=== PATIENT | female | born 1950 | race Caucasian/White ===

== ENCOUNTER 2017-03-14 16:44 | Emergency (ER) | payer MEDICARE, OTHER ==
[2017-03-14] MEDS ORDERED: MORPHINE 2 MG/ML SYRINGE IVP STA (17:24)
[2017-03-14] MEDS ORDERED: KETOROLAC 60 MG/2 ML VIAL IVP STA (17:24)
[2017-03-14] MEDS ORDERED: ONDANSETRON 4 MG/2 ML VIAL IVP STA ×2 (17:24→18:52)
[2017-03-14] MEDS ORDERED: MORPHINE 2 MG/ML SYRINGE ONE (17:46)
[2017-03-14] MEDS ORDERED: ONDANSETRON 4 MG/2 ML VIAL ONE ×2 (17:46→18:53)
[2017-03-14] MEDS ORDERED: KETOROLAC 30 MG/ML VIAL ONE (17:46)
[2017-03-14] MEDS ORDERED: HYDROmorphone 1 MG/ML SYRINGE IVP STA (18:24)
[2017-03-14] MEDS ORDERED: TAMSULOSIN 0.4 MG CAPSULE PO STA (18:52)
[2017-03-14] MEDS ORDERED: HYDROmorphone 1 MG/ML SYRINGE ONE (18:53)
[2017-03-14] MEDS ORDERED: TAMSULOSIN 0.4 MG CAPSULE ONE (18:54)
== END 2017-03-14 19:44 | disposition home or self-care (01) ==
DX: N13.2 Hydronephrosis with renal and ureteral calculous obstruction (principal); Z87.891 Personal history of nicotine dependence
CPT/HCPCS: 74176; 80053; 81001; 83690; 85025; 96374; 96375; 96376; 99283; 99284; A9270; J1170

== ENCOUNTER 2017-06-19 08:39 | Outpatient (CLI) | payer MEDICARE, OTHER ==
--- NOTE | 2017-06-20 17:21 | Mammography Report ---
DIGITAL SCREENING MAMMOGRAM: 06/19/2017 CLINICAL INDICATION: A 66-year-old for screening. COMPARISON: Films from [place], [place] dated 07/07/2014, 03/22/2013. TECHNIQUE: Routine CC and MLO projections were obtained of the breasts as well as bilateral laterall y exaggerated craniocaudal views. FINDINGS: The breasts again demonstrate heterogeneously dense fibroglandular parenchyma bilaterally. Punctate, typically benign calcifications are present. No suspicious masses, clustered microcalcif ications, or regions of architectural distortion are identified. IMPRESSION: BENIGN FINDINGS. RECOMMENDATION: Routine annual screening unless otherwise clinically indicated. BIRADS CATEGORY 2 - BENIGN FINDINGS. STANDARD QUALIFYING STATEMENTS 1. This examination was reviewed with the aid of Computer-Aided Detection (CAD). 2. A negative or benign imaging report should not delay biopsy if clinically suspicious findings are present. Consider surgical consultation if warranted. More than 5% of cancers are not identified by i maging. 3. Dense breasts may obscure an underlying neoplasm. JOB #: [id number] EXT JOB #:[id number]
== END 2017-06-19 08:40 | disposition home or self-care (01) ==
LOC: DI 08:39
PROVIDERS: ATTEND Family Medicine
DX: Z12.31 Encounter for screening mammogram for malignant neoplasm of breast (principal)
CPT/HCPCS: 77067

== ENCOUNTER 2017-07-11 08:20 | Outpatient (CLI) | payer MEDICARE, OTHER ==
--- NOTE | 2017-07-11 10:12 | XRAY Report ---
TWO-VIEW CHEST: 07/11/2017 CLINICAL INDICATION: Cough, wheezing. FINDINGS: Frontal and lateral views of the chest demonstrate a normal cardiac silhouette. The lungs are clear. No effusion or pneumothorax is present. IMPRESSION: NORMAL CHEST. JOB #: [id number] EXT JOB #:[id number]
== END 2017-07-11 08:21 | disposition home or self-care (01) ==
LOC: DI 08:20
PROVIDERS: ATTEND Nurse Practitioner Family
DX: R05 Cough (principal); R06.2 Wheezing
CPT/HCPCS: 71020

== ENCOUNTER 2018-10-10 09:23 | Outpatient (CLI) | payer MEDICARE, OTHER ==
--- NOTE | 2018-10-11 08:58 | Mammography Report ---
Reason: SCREENING MAMMO Procedure Date: 10/10/2018 Accession Number: [id number] / [id number] Procedure: JEREMIAH - Screening Mammo w/Dwayne CPT Code: FULL RESULT: EXAM: Screening Mammo w/Dwayne DATE: 10/10/2018 10:12 AM CLINICAL HISTORY: Screening encounter. History of left breast cyst removal in the 1970s. TECHNIQUE: Bilateral CC, laterally exaggerated CC, MLO views were obtained. COMPARISON: 06/19/2017 through 03/22/2013. FINDINGS: The breasts demonstrate heterogeneously dense fibroglandular parenchyma bilaterally. There are coarse typically benign calcifications bilaterally. No suspicious masses, clustered microcalcifications, or regions of architectural distortion are identified. IMPRESSION: Benign findings RECOMMENDATION: Routine annual screening unless otherwise clinically indicated. BIRADS CATEGORY 2: Benign findings STANDARD QUALIFYING STATEMENTS: 1. This examination was not reviewed with the aid of Computer-Aided Detection (CAD). 2. A negative or benign imaging report should not preclude biopsy if clinically suspicious findings are present. 3. Dense breasts may obscure an underlying neoplasm. 4. This examination was reviewed without the aid of 3D breast imaging (tomosynthesis).
== END 2018-10-10 09:24 | disposition home or self-care (01) ==
LOC: DI 09:23
DX: Z12.31 Encounter for screening mammogram for malignant neoplasm of breast (principal)
CPT/HCPCS: 77063; 77067

== ENCOUNTER 2019-10-01 11:03 | Outpatient (CLI) | payer MEDICARE, OTHER ==
--- NOTE | 2019-10-02 09:22 | Mammography Report ---
Reason: SCREENING MAMMO Procedure Date: 10/01/2019 Accession Number: [id number] / [id number] Procedure: JEREMIAH - Screening Mammo w/Dwayne CPT Code: Final Report FULL RESULT: EXAM: Screening Mammo w/Dwayne DATE: 10/01/2019 11:39 AM CLINICAL HISTORY: Screening encounter. History of benign left biopsy excisional type. TECHNIQUE: (B) - Bilateral CC, laterally exaggerated CC, MLO views were obtained. COMPARISON: 10/10/2018 through 03/22/2013. PARENCHYMAL PATTERN: (D) - The breast(s) demonstrate(s) heterogeneously dense fibroglandular parenchyma. FINDINGS: There are coarse typically benign calcifications. There are no suspicious masses, calcifications, or areas of distortion. IMPRESSION: Benign findings. BI-RADS category 2. RECOMMENDATION: (ANNUAL) - Recommend routine annual screening mammography. BI-RADS CATEGORY: (2) - Benign Findings. STANDARD QUALIFYING STATEMENTS: 1. This examination was not reviewed with the aid of Computer-Aided Detection (CAD). 2. A negative or benign imaging report should not preclude biopsy if clinically suspicious findings are present. 3. Dense breasts may obscure an underlying neoplasm. 4. This examination was reviewed with the aid of 3D breast imaging (tomosynthesis).
== END 2019-10-01 11:04 | disposition home or self-care (01) ==
LOC: DI 11:03
PROVIDERS: ATTEND Nurse Practitioner Family
DX: Z12.31 Encounter for screening mammogram for malignant neoplasm of breast (principal)
CPT/HCPCS: 77063; 77067

== ENCOUNTER 2023-10-27 10:10 | Emergency (ER) | payer MEDICARE, OTHER ==
--- NOTE | 2023-10-27 10:23 | ED Physician Documentation ---
PD HPI ABD PAIN - Stated complaint Stated Complaint: ABD CRAMPING/NAUSEA/VOMITING - History obtained from History obtained from: Patient - History of Present Illness Timing - onset: How many days ago (3-4) Timing - duration: Days (3-4) Timing - details: Abrupt onset, Still present Pain level max: 10 Pain level now: 7 Quality: Cramping, Aching, Pain Location: LLQ Radiation: Lower back. No: Chest, Left flank Improved by: No: Laying still Worsened by: Moving, Palpation Associated symptoms: Nausea, Diarrhea (severe frequent watery yellow foul- smelling diarrhea without blood.). No: Fever, Vomiting, Constipation Similar symptoms before: Has not had sx before Recently seen: Not recently seen, Other (no recent suspicious food nor antibioti cs. no travel.) Review of Systems Constitutional: denies: Fever, Chills Nose: denies: Rhinorrhea / runny nose, Congestion Throat: denies: Sore throat Respiratory: denies: Cough PD PAST MEDICAL HISTORY - Past Medical History Cardiovascular: None Respiratory: None Neuro: None Endocrine/Autoimmune: None GI: None TRAINING CONSULTANT: None : None HEENT: None Psych: None Musculoskeletal: None Derm: None - Past Surgical History Past Surgical History: Yes General: Cholecystectomy Ortho: Carpal Tunnel surgery /TRAINING CONSULTANT: Hysterectomy - Present Medications Home Medications: Ambulatory Orders Medication Instructions Recorded Confirmed Diclofenac Sodium 25 mg PO TID PRN 03/14/17 10/27/23 Estrogens, Conjugated [Premarin] 0.3 mg PO DAILY 03/14/17 10/27/23 Atorvastatin [Lipitor] 20 mg PO QPM 10/27/23 10/27/23 Diphenoxylate/Atropine [Lomotil] 1 each PO QID PRN #16 tablet 10/27/23 HYDROcod/ACETAM 5/325 [[place] 5/325] 1 ea PO Q6H PRN #8 tablet 10/27/23 Ondansetron Odt [Zofran] 4 mg TL Q6H PRN #10 tablet 10/27/23 - Allergies Allergies/Adverse Reactions: Allergies Allergy/AdvReac Type Severity Reaction Status Date / Time propoxyphene HCl * Allergy Unknown Verified 10/27/23 10:33 [From Kamila] - Social History Does the pt smoke?: No Smoking Status: Former smoker Does the pt drink ETOH?: No Does the pt have substance abuse?: No - Immunizations Immunizations are current?: Yes PD ED PE NORMAL - Vitals Vital signs reviewed: Yes - General General: Alert and oriented X 3, Well developed/nourished, Other (appears in pain left lower abd. ) - Cardiac Cardiac: RRR, No murmur - Respiratory Respiratory: Clear bilaterally - Abdomen Abdomen: Soft, Non distended, No organomegaly, Other (LLQ tender focally with local guarding, percussion and rebound tenderness. Rest of abd not tender but LUQ does refer to LLQ. ). No: Normal bowel sounds (increased) - Derm Derm: Normal color, Warm and dry Results - Vitals Vitals: Vital Signs - 24 hr 10/27/23 10/27/23 10/27/23 10:27 11:27 13:14 Temperature 36.0 C L 36.0 C L Heart Rate 74 71 63 Respiratory 18 18 18 Rate Blood Pressure 172/73 H 144/76 H 142/78 H O2 Saturation 98 99 99 10/27/23 14:22 Temperature Heart Rate 62 Respiratory 18 Rate Blood Pressure 125/59 L O2 Saturation 95 Oxygen O2 Source Room air - Labs Labs: Laboratory Tests 10/27/23 10/27/23 10/27/23 10:52 10:52 11:49 WBC 5.8 RBC 4.60 Hgb 14.0 Hct 41.4 MCV 90.0 MCH 30.4 MCHC 33.8 RDW 13.3 Plt Count 198 MPV 9.2 Neut # (Auto) 3.6 Lymph # (Auto) 1.7 [place] # (Auto) 0.4 Eos # (Auto) 0.1 Baso # (Auto) 0.0 Absolute Nucleated RBC 0.00 Nucleated RBC % 0.0 Sodium 137 Potassium 3.9 Chloride 102 Carbon Dioxide 27 Anion Gap 8.0 BUN 15 Creatinine 0.8 Estimated GFR (MDRD) 71 L Glucose 97 Calcium 10.2 Total Bilirubin 0.8 AST 29 ALT 26 Alkaline Phosphatase 64 Total Protein 7.3 Albumin 4.7 Globulin 2.6 Albumin/Globulin Ratio 1.8 Lipase < 10 L Urine Color YELLOW Urine Clarity CLEAR Urine pH 6.0 Ur Specific [place] <=1.005 Urine Protein NEGATIVE Urine Glucose (UA) NEGATIVE Urine Ketones NEGATIVE Urine Occult Blood NEGATIVE Urine Nitrite NEGATIVE Urine Bilirubin NEGATIVE Urine Urobilinogen 0.2 (NORMAL) Ur Leukocyte Esterase NEGATIVE Ur Microscopic Review NOT INDICATED Urine Culture Comments NOT INDICATED - Rads (name of study) ebd/el CT Relevant Findings:: Prelim report reviewed PD Medical Decision Making - ED course Complexity details: reviewed results (abd/pelvic CT with some diverticula, but no diverticulitis. Remote hyst and CCY. No other acute. ), re-evaluated patient (pt symptoms improved with IV toradol, Zofran and dilaudid. 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 ), considered differential (significant diarrhea and left abd pain for several days and of course did not have to have even small BM here. Describes watery, yellow, fould smelling diarrhea. Pain LLQ focally, so consider diverticulitis/colitis. ), d/w patient Departure - Departure Disposition: Home, Self Care Clinical Impression: Diarrhea, Abdominal cramping Condition: Stable Record reviewed to determine appropriate education?: Yes Follow-Up: Bakari Connolly MD [Primary Care Provider] - Prescriptions: Diphenoxylate/Atropine [Lomotil] 1 each PO QID PRN #16 tablet PRN Reason: Diarrhea HYDROcod/ACETAM 5/325 [[place] 5/325] 1 ea PO Q6H PRN #8 tablet PRN Reason: Pain Ondansetron Odt [Zofran] 4 mg TL Q6H PRN #10 tablet PRN Reason: Nausea / Vomiting Comments: Small frequent fluids and initially carbohydrate/starches tend to be better with diarrhea. I would also suggest a probiotic supplement. You can use antidiar rheal medicines to try to decrease the diarrhea. Ondansetron if needed for nausea. At Tylenol every 4-6 hours if needed for cramps or pains. Hydrocodone if needed for worse cramps or pains. At this point most likely to consider this a viral type illness or food related intolerance. Consideration however would be for a bacterial type infection such as C. difficile, Shigella, Salmonella etc. The answer to that would be on the stool sample testing. If you have persistent diarrhea or cramps beyond another day or 2 then you will want to obtain a sample of your diarrhea and bring it to your primary care for particular testing. Otherwise a inflammation or viral type illness typically will resolve after a few days. I sent prescriptions to the [facility] pharmacy. Forms: PCP List Discharge Date/Time: 10/27/23 14:23
[2023-10-27] MEDS ORDERED: ONDANSETRON 4 MG/2 ML VIAL IVP STA (10:51)
[2023-10-27] MEDS ORDERED: KETOROLAC 15 MG/ML VIAL IVP STA (10:51)
[2023-10-27] MEDS ORDERED: SODIUM CHLORIDE 0.9% 1,000 ML IV STA (10:51)
[2023-10-27 10:58] LABS: BASOPHILS % (AUTO) 0.5 %; EOSINOPHILS # (AUTO) 0.1 10^3/uL (0.0-0.7); EOSINOPHILS % (AUTO) 2.4 %; HCT - HEMATOCRIT 41.4 % (37.0-47.0); LYMPHOCYTES # (AUTO) 1.7 10^3/uL (1.5-3.5); LYMPHOCYTES % (AUTO) 29.1 %; MEAN CORPUSCULAR HEMOGLOBIN 30.4 pg (27.0-31.0); MEAN CORPUSCULAR HGB CONC 33.8 g/dL (32.0-36.0); MEAN PLATELET VOLUME 9.2 fL (7.9-10.8); MONOCYTES # (AUTO) 0.4 10^3/uL (0.0-1.0); MONOCYTES % (AUTO) 6.7 %; NEUTROPHILS # (AUTO) 3.6 10^3/uL (1.5-6.6); NEUTROPHILS % (AUTO) 61.1 %; PLT - PLATELET COUNT 198 10^3/uL (130-450); RED CELL DISTRIBUTION WIDTH 13.3 % (12.0-15.0); WHITE BLOOD COUNT 5.8 x10^3/uL (4.8-10.8)
[2023-10-27 11:17] LABS: ALBUMIN 4.7 g/dL (3.2-5.5); ALBUMIN/GLOBULIN RATIO 1.8 (1.0-2.2); ALKALINE PHOSPHATASE 64 IU/L (42-121); ALT ALANINE AMINOTRANSFERASE 26 IU/L (10-60); AST ASPARTATE AMINOTRANSFERASE 29 IU/L (10-42); BILIRUBIN,TOTAL 0.8 mg/dL (0.2-1.0); BUN - BLOOD UREA NITROGEN 15 mg/dL (6-20); CALCIUM 10.2 mg/dL (8.5-10.3); CARBON DIOXIDE - CO2 27 mmol/L (21-32); CHLORIDE 102 mmol/L (101-111); CREATININE 0.8 mg/dL (0.6-1.3); GFR - MDRD 71 (>89); GLUCOSE 97 mg/dL (74-104); LIPASE < 10 U/L (11-82); POTASSIUM 3.9 mmol/L (3.5-4.5); SODIUM 137 mmol/L (135-145); TOTAL PROTEIN 7.3 g/dL (6.4-8.9)
[2023-10-27] MEDS ORDERED: HYDROmorphone 1 MG/ML CARPUJECT IVP STA (11:35)
[2023-10-27 11:59] LABS: BILIRUBIN,URINE NEGATIVE (NEGATIVE); GLUCOSE, URINE (UA) NEGATIVE (NEGATIVE); KETONES,URINE (UA) NEGATIVE (NEGATIVE); LEUKOCYTE ESTERASE, URINE NEGATIVE (NEGATIVE); NITRITE,URINE NEGATIVE (NEGATIVE); OCCULT BLOOD,URINE NEGATIVE (NEGATIVE); PROTEIN,URINE NEGATIVE (NEGATIVE); UROBILINOGEN,URINE 0.2 (NORMAL) E.U./dL (NORMAL)
[2023-10-27 12:01] LABS: CLARITY,URINE CLEAR (CLEAR)
[2023-10-27] MEDS ORDERED: iohexoL-300 100 ML VIAL IVP ONE (12:42)
--- NOTE | 2023-10-27 12:57 | CT Report ---
PROCEDURE: ABDOMEN/PELVIS W INDICATIONS: LLQ Abdominal pain, diverticulitis suspected CONTRAST: Omni 300 100ml TECHNIQUE: After the administration of oral and intravenous contrast, 5 mm thick sections acquired from the diap hragms to the symphysis. 5 mm thick coronal and sagittal reformats were acquired. For radiation dos e reduction, the following was used: automated exposure control, adjustment of mA and/or kV accordin g to patient size. COMPARISON: CT [facility] dated 03/14/2017 FINDINGS: Image quality: Excellent. Lung bases and heart: Unremarkable. Liver: Mild diffuse hepatic steatosis. Gallbladder and biliary tree: Gallbladder is surgically absent. There is dilatation of the biliary tr ee, commonly seen in this age group post cholecystectomy. There is no obstructing pancreatic mass not ed. Spleen: No splenomegaly. Pancreas: No pancreatic ductal dilation. Adrenals: No adrenal nodule. Kidneys and ureters: No hydronephrosis. No renal cystic lesion which requires follow up. No solid mas s. Bowel and peritoneum: No bowel distension. No pathologic free fluid. No significant diverticulosis. N o evidence of diverticulitis or other acute bowel pathology. Lymph nodes: No central or retroperitoneal adenopathy. Vessels: No infrarenal aortic aneurysm. PELVIS Reproductive organs: Uterus is surgically absent. No adnexal masses identified.. Bladder: No abnormal wall thickening, accounting for underdistension. Pelvic lymph nodes: No pelvic adenopathy by size criteria. Bones: No aggressive osseous abnormality. Other: No significant ventral or inguinal hernia. IMPRESSION: 1. No significant diverticulosis. No evidence of acute diverticulitis or other acute abdominal pathol ogy. 2. Remote cholecystectomy with prominence of the biliary tree. 3. Remote hysterectomy. Reviewed by: Kuldip Ng MD on 10/27/2023 12:56 PM PST Approved by: Kuldip Ng MD on 10/27/2023 12:56 PM PST Station ID: [id number]
[2023-10-27 14:29] VITALS: BP 125/59; O2SAT 95
== END 2023-10-27 14:23 | disposition home or self-care (01) ==
LOC: ED 10:10
DX: R10.32 Left lower quadrant pain (principal); R19.7 Diarrhea, unspecified; Z87.891 Personal history of nicotine dependence
CPT/HCPCS: 36415; 74177; 80053; 81003; 83690; 85025; 96374; 96375; 99284; J1170; Q9967; 81001; 87086; 87507

== ENCOUNTER 2024-05-08 12:51 | Outpatient (CLI) | payer MEDICARE, OTHER ==
--- NOTE | 2024-05-09 08:43 | Mammography Report ---
BILATERAL DIGITAL SCREENING MAMMOGRAM 3D/2D: 05/08/2024 CLINICAL: Routine screening. Comparison is made to exams dated: 10/01/2019 mammogram, 10/10/2018 mammogram, 06/29/2017 mammogram - [facility], and 07/07/2014 mammogram - [facility]. Both breasts are heterogeneously dense, which may obscure small masses (category c / 51-75% glandular tissue). No significant masses, calcifications, or other findings are seen in either breast. There has been no significant interval change. IMPRESSION: NEGATIVE There is no mammographic evidence of malignancy. A 1 year screening mammogram is recommended. Based on the Tyrer Cuzick model (a risk assessment model) the patient's lifetime risk is 4.2% and her 10 year risk is 3.4%. According to the ACR, ACS, and NCCN guidelines, an annual breast MRI exam twin g with mammogram is recommended if the patient's lifetime risk is 20% or greater. This exam was interpreted at Station ID: [id number]. NOTE: For mammograms, a report in lay terms will be sent to the patient. Approximately 15% of breast malignancies will not be visualized mammographically. In the management of a palpable breast mass, a negative mammogram must not discourage biopsy of a clinically suspicious lesion. Electronically Signed By: Ammon maya/gian:05/08/2024 13:53:12 letter sent: No_Letter ACR BI-RADS Category 1: Negative 3341F PARENCHYMAL PATTERN: (D) - The breast(s) demonstrate(s) heterogeneously dense fibroglandular maryana wu. BI-RADS CATEGORY: (1) - 1 RECOMMENDATION: (ANNUAL) - Recommend routine annual screening mammography. [id number] 1 year screening LATERALITY: (B)
== END 2024-05-08 12:52 | disposition home or self-care (01) ==
LOC: DI 12:51
PROVIDERS: ATTEND Nurse Practitioner Family
DX: Z12.31 Encounter for screening mammogram for malignant neoplasm of breast (principal); R92.333 Mammographic heterogeneous density, bilateral breasts

== ENCOUNTER 2024-05-26 10:19 | Emergency (ER) | payer MEDICARE, OTHER ==
[2024-05-26 10:29] VITALS: BP 151/80; O2SAT 99
--- NOTE | 2024-05-26 11:32 | ED Physician Documentation ---
PD HPI UPPER EXT INJURY - Stated complaint Stated Complaint: RT SHOULDER PX - Chief complaint Chief Complaint: Trauma Ext - History obtained from History obtained from: Patient - Additonal information Additional information: She is been having ongoing right shoulder pain for the last few weeks related to increased work in the garden etc. She is ambidextrous. Yesterday she had a minor fall against the wall with that shoulder and it hurt much more. She has significant limited range of motion. No other injuries. PD PAST MEDICAL HISTORY - Past Medical History Past Medical History: No Cardiovascular: None Respiratory: None Neuro: None Endocrine/Autoimmune: None GI: None RADIOLOGY CLERK: None : None HEENT: None Psych: None Musculoskeletal: None Derm: None - Past Surgical History Past Surgical History: Yes General: Cholecystectomy Ortho: Carpal Tunnel surgery /RADIOLOGY CLERK: Hysterectomy - Present Medications Home Medications: Ambulatory Orders Medication Instructions Recorded Confirmed Diclofenac Sodium 25 mg PO TID PRN 03/14/17 10/27/23 Estrogens, Conjugated [Premarin] 0.3 mg PO DAILY 03/14/17 10/27/23 Atorvastatin [Lipitor] 20 mg PO QPM 10/27/23 10/27/23 Diphenoxylate/Atropine [Lomotil] 1 each PO QID PRN #16 tablet 10/27/23 HYDROcod/ACETAM 5/325 [[place] 5/325] 1 ea PO Q6H PRN #8 tablet 10/27/23 Ondansetron Odt [Zofran] 4 mg TL Q6H PRN #10 tablet 10/27/23 Meloxicam [Mobic] 7.5 mg PO BID PRN #20 tablet 05/26/24 - Allergies Allergies/Adverse Reactions: Allergies Allergy/AdvReac Type Severity Reaction Status Date / Time propoxyphene HCl * Allergy Unknown Verified 05/26/24 10:28 [From Darvon] - Social History Does the pt smoke?: No Smoking Status: Never smoker Does the pt drink ETOH?: No Does the pt have substance abuse?: No - Immunizations Immunizations are current?: Yes - POLST Patient has POLST: No PD ED PE NORMAL - Vitals Vital signs reviewed: Yes - General General: Alert and oriented X 3, No acute distress - Extremities Extremities: Other (Mild tenderness to the right shoulder joint. The clavicle is not tender nor is the AC joint. There is no deformity. She has pain with both abduction and internal rotation, she is able to do better passively than actively.) - Neuro Neuro: Alert and oriented X 3, Normal speech Eye Opening: Spontaneous Motor: Obeys Commands Verbal: Oriented GCS Score: 15 - Psych Psych: Normal mood, Normal affect Results - Vitals Vitals: Vital Signs - 24 hr 05/26/24 10:25 Temperature 36.4 C L Heart Rate 84 Respiratory 20 Rate Blood Pressure 151/80 H O2 Saturation 99 Oxygen O2 Source Room air - Rads (name of study) Shoulder x-ray demonstrates degenerative changes including moderate subacromial spurring, no acute bony abnormality. Relevant Findings:: Final report received, EMP independent interpretation of test PD Medical Decision Making - ED course ED course: She presents with acute on chronic right shoulder pain with a mild injury yesterday. Seemingly like a rotator cuff based on the above exam. X-ray to my eye shows some degenerative change especially in the AC joint but no acute issues. She was counseled on range of motion exercises and orthopedic follow- up. She was hopeful that I could "fix it immediately," but discussed with her t hat unfortunately there is no quick fix for this. Departure - Departure Disposition: 01 Home, Self Care Clinical Impression: Rotator cuff arthropathy of right shoulder Condition: Good Record reviewed to determine appropriate education?: Yes Instructions: MEÑO Bhatia Tendinitis Rotator Cuff Follow-Up: [facility] [Provider Group] Prescriptions: Meloxicam [Mobic] 7.5 mg PO BID PRN #20 tablet PRN Reason: Pain Comments: Your x-ray shows some mild degenerative changes especially in the acromioclavicular joints. That said there is no break or obvious acute bony injury. As discussed I think you probably have a rotator cuff issue based on the history and exam. Do the exercises in the packet to maintain range of motion and I am prescribing an anti-inflammatory. Follow-up with our automotive alignment specialist, those numbers on this form and you can call tomorrow for an appointment. Return for new or worse symptoms. Forms: PCP List Discharge Date/Time: 05/26/24 12:01
--- NOTE | 2024-05-26 12:09 | XRAY Report ---
PROCEDURE: Shoulder 2+V RT INDICATIONS: trauma TECHNIQUE: 3 views of the shoulder were acquired. COMPARISON: Correlation is made with chest x-ray, 07/11/2017 FINDINGS: Bones: No fractures or dislocations. No suspicious bony lesions. Visualized ribs appear intact. C hanges are seen, including moderate subacromial spurring. Soft tissues: No suspicious soft tissue calcifications. The visualized lungs are within normal limi ts. IMPRESSION: No acute bony abnormality. There are underlying degenerative changes are seen, including moderate subacromial spurring. If it would be helpful for clinical management decision making, please consider a dedicated, schedule d shoulder MRI for further evaluation (assuming that there is no contraindication). Reviewed by: Geoff Jeffery MD on 05/26/2024 11:08 AM ADRIANA Approved by: Geoff Jeffery MD on 05/26/2024 11:08 AM ADRINAA Station ID: [id number]
== END 2024-05-26 12:01 | disposition home or self-care (01) ==
LOC: ED 10:19
DX: M12.511 Traumatic arthropathy, right shoulder (principal); M19.011 Primary osteoarthritis, right shoulder; W18.39XA Other fall on same level, initial encounter; W22.01XA Walked into wall, initial encounter; Y93.E8 Activity, other personal hygiene
CPT/HCPCS: 99283; 99284

== ENCOUNTER 2024-06-05 12:38 | Outpatient (CLI) | payer MEDICARE, OTHER ==
--- NOTE | 2024-06-05 15:14 | DEXA Report ---
PROCEDURE: Dexa Spine and/or Hip INDICATIONS: POST MENOPAUSAL TECHNIQUE: Dual energy x-ray absorptiometry (DXA) was performed on a [employer] System. Regions measur ed are the AP Spine, femoral neck, and if needed forearm. COMPARISON: None FINDINGS: Lumbar Spine: Bone Mineral Density: 1.573 g/cm/cm,T score: 3.3. Left Femoral Neck: Bone Mineral Density: 0.871 g/cm/cm, T score: -1.2. Left Hip: Bone Mineral Density: 1.029 g/cm/cm,T score: 0.2. (T score greater or equal to -1.0: NORMAL) (T score from -1.1 to -2.4: OSTEOPENIA) (T score less than or equal to -2.5 to: OSTEOPOROSIS) Impression: By WHO criteria, this patient has low bone density (osteopenia). Patients with diagnosis of osteoporosis or osteopenia should have regular bone mineral density assess ment. For those eligible for Medicare, routine testing is allowed once every 2 years. Testing frequ ency can be increased for patients who have rapidly progressing disease or for those who are receivin g medical therapy to restore bone mass. Reviewed by: Petey Parker MD on 06/05/2024 3:12 PM PDT Approved by: Petey Parker MD on 06/05/2024 3:12 PM PDT Station ID: [id number]
== END 2024-06-05 12:39 | disposition home or self-care (01) ==
LOC: DI 12:38
PROVIDERS: ATTEND Nurse Practitioner Family
DX: M85.88 Other specified disorders of bone density and structure, other site (principal); Z78.0 Asymptomatic menopausal state

== ENCOUNTER 2024-07-01 07:52 | Outpatient (CLI) | payer MEDICARE, OTHER ==
--- NOTE | 2024-07-02 08:34 | MRI Report ---
PROCEDURE: Shoulder RT WO INDICATIONS: R SHOULDER MUSCLE STRAIN TECHNIQUE: Noncontrast oblique coronal T2 fast spin echo with fat saturation, oblique sagittal T1 spin echo and T2 fast spin echo with fat saturation, axial T1 spin echo and T2 fast spin echo with fat saturation a nd 3-D gradient echo through the shoulder. COMPARISON: Right shoulder radiographs 05/26/2024 FINDINGS: Image quality: Excellent. Rotator cuff: There is full-thickness tearing of the supraspinatus tendon and the anterior insertion measuring approximately 7 mm in anteroposterior dimension with up to 7 mm of proximal tendon retracti on. There is suspected superimposed calcific tendinopathy involving the torn tendon stump. Moderate t endinosis and low-grade partial intrasubstance tearing of the distal infraspinatus tendon. Teres sanchez r tendon is intact. The subscapularis tendon is also intact. No significant rotator cuff muscle atrop hy. Bones and bursae: No acute trabecular bone injury or fracture. Small chronic postsurgical changes are seen in the posterosuperior humeral head. Mild partial thickness cartilage irregularity in the gleno humeral joint. Moderate degenerative changes are seen at the acromioclavicular joint with subchondral cystic changes, subchondral edema, and small marginal osteophytes. A small amount of fluid is seen i n the subacromial/subdeltoid bursa that likely communicates with the glenohumeral joint space. Capsule and soft tissues: Mild diffuse labral degeneration without a discrete tear. Proximal biceps l parisa head tendon demonstrates mild tendinosis. There is effacement of the normal fat signal in the rot ator interval. Inferior glenohumeral ligament is borderline in thickness. IMPRESSION: 1.Full-thickness, partial width tearing of the supraspinatus tendon at the distal insertion measuring 7 mm in anteroposterior dimension with approximately 7 mm of proximal tendon retraction. Suspected s uperimposed calcific tendinopathy at the distal tendon stump. 2.Moderate tendinosis and low-grade partial intrasubstance tearing of the distal infraspinatus tendon . 3.Mild proximal biceps long head tendinosis. 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 Mild labral degeneration. 5.Moderate acromioclavicular joint osteoarthrosis. 6.Small amount of fluid in the subacromial/subdeltoid bursa communicates with the glenohumeral joint space. Reviewed by: Christopher Tyler MD on 07/02/2024 8:32 AM PDT Approved by: Christopher Tyler MD on 07/02/2024 8:32 AM PDT Station ID: [id number]
== END 2024-07-01 07:53 | disposition home or self-care (01) ==
LOC: DI 07:52
PROVIDERS: ATTEND Orthopaedic Surgery
DX: M75.121 Complete rotator cuff tear or rupture of right shoulder, not specified as traumatic (principal); M67.813 Other specified disorders of tendon, right shoulder; S46.011A Strain of muscle(s) and tendon(s) of the rotator cuff of right shoulder, initial encounter; M94.211 Chondromalacia, right shoulder; M19.011 Primary osteoarthritis, right shoulder